=== PATIENT | female | born 1985 | race Caucasian/White ===

== ENCOUNTER 2018-02-12 15:21 | Emergency (ER) | payer SELFPAY ==
[~2018-02-12] VITALS: Ht 160 cm; Wt 56.7 kg
[2018-02-12 15:54] LABS: BASOPHILS % (AUTO) 0.8 % (0.0-2.0); EOSINOPHILS # (AUTO) 0.1 K/uL (0.0-0.7); EOSINOPHILS % (AUTO) 0.8 % (0.0-7.0); HEMATOCRIT 37.8 % (31.2-41.9); HEMOGLOBIN 12.9 g/dL (10.9-14.3); LYMPHOCYTES # (AUTO) 2.2 K/uL (20.0-40.0); LYMPHOCYTES % (AUTO) 34.3 % (20.5-51.5); MEAN CORPUSCULAR HEMOGLOBIN 32.5 uug (24.7-32.8); MEAN CORPUSCULAR HGB CONC 34 g/dL (32.3-35.6); MEAN CORPUSCULAR VOLUME 94.8 fL (75.5-95.3); MONOCYTES # (AUTO) 0.3 K/uL (2.0-10.0); MONOCYTES % (AUTO) 4.9 % (0.0-11.0); NEUTROPHILS # (AUTO) 3.8 K/uL (1.8-8.9); NEUTROPHILS % (AUTO) 59.2 % (38.5-71.5); PLATELET COUNT (AUTO) 272 K/uL (179-408); RED BLOOD CELL COUNT(AUTO) 3.98 MIL/uL (3.63-4.92); WHITE BLOOD COUNT (AUTO) 6.4 K/uL (3.8-11.8)
[2018-02-12 15:55] LABS: *BILIRUBIN,URIN NEGATIVE (NEGATIVE); *BLOOD, URINE NEGATIVE (NEGATIVE); *CLARITY,URINE CLEAR (CLEAR); *COLOR,URINE STRAW (YELLOW); *KETONES,URINE NEGATIVE (NEGATIVE); *PROTEIN,URINE NEGATIVE (NEGATIVE); *UROBILINOGEN,URINE 0.2 E.U./dl (NORMAL); LEUKOCYTE ESTERASE ,URINE NEGATIVE (NEGATIVE); NITRITE, URINE NEGATIVE (NEGATIVE); UGLUCOSE NEGATIVE (NEGATIVE)
--- NOTE | 2018-02-12 15:55 | NUR ---
Patient is AOx4, refusing to give any medical or psych history/information to staff, 1:1 sitter maintained.
[2018-02-12 16:00] LABS: CARBON DIOXIDE 28 mmol/L (21-32); CHLORIDE 109 mmol/L (98-107); CREATININE 0.7 mg/dL (0.6-1.3); GLUCOSE 94 mg/dL (74-106); POTASSIUM 3.8 mmol/L (3.5-5.1); UREA NITROGEN, BLOOD 7 mg/dL (7-18)
[2018-02-12 16:05] LABS: ALANINE AMINOTRANSFERASE 27 U/L (14-59); ALKALINE PHOSPHATASE 63 U/L (50-136); ASPARTATE AMINOTRANSFERASE 21 U/L (15-37); BILIRUBIN,DIRECT 0.2 mg/dL (0.0-0.2); BILIRUBIN,TOTAL 0.6 mg/dL (0.2-1.0); TOTAL PROTEIN, SERUM 7.6 g/dL (6.4-8.2)
[2018-02-12 16:07] LABS: BACTERIA,URINE NONE SEEN /HPF (NONE SEEN); RBC,URINE 0-3 /HPF (0-3); WBC,URINE 0-3 /HPF (0-3)
[2018-02-12 16:07] LABS: ETHANOL 313 MG/DL (0-0)
[2018-02-12 16:08] LABS: SQUAMOUS EPITHELIAL CELL,UR FEW /HPF (NONE SEEN)
--- NOTE | 2018-02-12 16:08 | NUR ---
[employer] AT BEDSIDE.
[2018-02-12 16:09] LABS: ACETAMINOPHEN < 2.0 ug/mL (10-30)
[2018-02-12 16:17] LABS: *AMPHETAMINE, URINE NEGATIVE (NEGATIVE); *BARBITURATE, URINE NEGATIVE (NEGATIVE); *CANNABINOID, URINE NEGATIVE (NEGATIVE); *COCCAINE, URINE NEGATIVE (NEGATIVE); *OPIATE, URINE NEGATIVE (NEGATIVE); *PHENCYCLIDINE SCREEN,URINE NEGATIVE (NEGATIVE)
--- NOTE | 2018-02-12 16:49 | NUR ---
Patient is now combative, cursing and yelling to staff, MD notified- still for medical clearance and psych evaluation at this time
[2018-02-12] MEDS ORDERED: LORAZEPAM 2 MG/1 ML VIAL ONE (16:50)
--- NOTE | 2018-02-12 16:52 | NUR ---
Onlu 2 mg IM of Ativan was given. "DUPLICATE ativan IM order" discontinued by .
[2018-02-12 17:00] LABS: *URINE HCG, QUAL NEGATIVE (NEGATIVE)
[2018-02-12] MEDS ORDERED: LORAZEPAM 2 MG/1 ML VIAL IM ONE ×2 (17:00)
--- NOTE | 2018-02-12 17:06 | NUR ---
Patient is now walking around and moving inside room 2A. Patient is opening all drawers in the dyana &, playing with the overhead lights despite frequent reminders. Patient continues to yell, curse & scream. 1:1 sitter at bedside.
--- NOTE | 2018-02-12 17:11 | NUR ---
Patient moved to room 3 with security representative for safety.
--- NOTE | 2018-02-12 17:12 | NUR ---
Hands off report to RN Brent.
[2018-02-12] MEDS ORDERED: ZIPRASIDONE MESYLATE 20 MG VIAL IM ONE (17:21)
[2018-02-12] MEDS ORDERED: OLANZAPINE 10 MG VIAL IM ONE ×2 (17:23→17:30)
--- NOTE | 2018-02-12 17:45 | NUR ---
code garcias was called prior to restraints being placed.
--- NOTE | 2018-02-12 18:54 | NUR ---
restraint note.-placed at 1715 and removed at 1745. pt rec'd ativan and zyprexia prior.
--- NOTE | 2018-02-12 18:55 | NUR ---
pt sleeping, no distress noted.
--- NOTE | 2018-02-12 18:55 | NUR ---
application security architect at the doorway
--- NOTE | 2018-02-12 19:09 | NUR ---
Received SBAR report from Michael MCGRATH.
--- NOTE | 2018-02-12 19:10 | NUR ---
sbar report to zo agudelo, security at doorway. pt sleeping, no distress noted.
--- NOTE | 2018-02-12 19:30 | NUR ---
blanca Mcneal, at bedside. Patient sleeping no distress noted.
--- NOTE | 2018-02-12 20:30 | NUR ---
Patient sleeping, no distress noted.
--- NOTE | 2018-02-12 21:48 | NUR ---
Patient sleeping, no distress noted, arousable thru touch.
--- NOTE | 2018-02-12 23:00 | NUR ---
Patient sleeping, no acute signs of distress.
--- NOTE | 2018-02-13 01:34 | NUR ---
Patient sleeping, no acute signs of distress.
--- NOTE | 2018-02-13 03:30 | NUR ---
Poli Webber TEACHER LEARNING DISABLED notified for patient evaluation.
--- NOTE | 2018-02-13 03:40 | NUR ---
Patient sleeping, no acute signs of distress.
--- NOTE | 2018-02-13 04:55 | NUR ---
Art Capilla SPECIALTY SALES REPRESENTATIVE at bedside to evaluate patient.
--- NOTE | 2018-02-13 06:17 | NUR ---
Pt sleeping in bed, easily arousable, reports she has a headache, no acute signs of distress.
--- NOTE | 2018-02-13 07:07 | NUR ---
Passed SBAR report to Michael MCGRATH.
--- NOTE | 2018-02-13 07:12 | NUR ---
pt a/o x4 awaiting for breakfast, pt was cleared by pet team this am.
--- NOTE | 2018-02-13 08:53 | NUR ---
pt d/c'd, aci given, pt ambulated w/o diff to taxi,took all belongings.
[2018-02-13 08:55] VITALS: BP 122/65
== END 2018-02-13 08:55 | disposition home or self-care (01) ==
LOC: ER 15:23
DX: R45.851 Suicidal ideations (principal); F29 Unspecified psychosis not due to a substance or known physiological condition; F10.129 Alcohol abuse with intoxication, unspecified; Z04.6 Encounter for general psychiatric examination, requested by authority; Z88.5 Allergy status to narcotic agent
CPT/HCPCS: 36415; 80307; 84703; 85025; A4663; G0480; G0480-TC; J2060; J2358; J3486